=== PATIENT | male | born 1935 | race Caucasian/White ===

== ENCOUNTER 2017-08-11 15:43 | Emergency (ER) | payer MEDICARE, MEDICAID ==
[2017-08-11 16:08] LABS: ADD MAN DIFF? NO
[2017-08-11 16:10] LABS: WHITE BLOOD COUNT 8.3 10^3/ul (4.8-10.8)
[2017-08-11 16:10] LABS: BASOPHILS % 0.5 % (0.0-2.0); EOSINOPHILS # 0.2 10^3/ul (0.0-0.5); EOSINOPHILS % 2.9 % (0.0-7.0); HEMATOCRIT 39.7 % (42.0-52.0); HEMOGLOBIN 13.7 g/dl (14.0-18.0); LYMPHOCYTES # 2.8 10^3/ul (0.8-2.9); LYMPHOCYTES % 33.7 % (15.0-51.0); MEAN CORPUSCULAR HEMOGLOBIN 33.4 pg (29.0-33.0); MEAN CORPUSCULAR HGB CONC 34.5 g/dl (32.0-37.0); MEAN CORPUSCULAR VOLUME 96.8 fl (82.0-101.0); MEAN PLATELET VOLUME 9.5 fl (7.4-10.4); MONOCYTE # 0.6 10^3/ul (0.3-0.9); MONOCYTES % 7.4 % (0.0-11.0); NEUTROPHIL # 4.6 10^3/ul (1.6-7.5); NEUTROPHILS % 55.4 % (39.0-77.0); PLATELET COUNT 281 10^3/UL (140-415); RED CELL DISTRIBUTION WIDTH 14.4 % (11.5-14.5)
[2017-08-11] MEDS: SOD CHLORIDE 0.9% 1,000 ML IV (16:13)
[2017-08-11 16:36] LABS: ANION GAP 16 (8-16); BLOOD UREA NITROGEN 20 mg/dl (7-20); CALCIUM 8.8 mg/dl (8.4-10.2); CARBON DIOXIDE 24 mmol/L (21-31); CHLORIDE 107 mmol/L (97-110); CREATININE 1.56 mg/dl (0.61-1.24); GLUCOSE 107 mg/dl (70-220); SALICYLATE 1.4 mg/dl (5.0-30.0); SODIUM 143 mmol/L (135-144)
[2017-08-11 16:38] LABS: ACETAMINOPHEN < 10.0 ug/ml (10.0-30.0); ETHANOL < 10.0 mg/dl
[2017-08-11 16:53] LABS: TROPONIN-I < 0.012 ng/ml (0.00-0.12)
[2017-08-11 18:34] LABS: ADD UMIC YES; UR ASCORBIC ACID NEGATIVE (NEGATIVE); UR BILIRUBIN (Dip) NEGATIVE (NEGATIVE); UR BLOOD (Dip) NEGATIVE (NEGATIVE); UR CLARITY SLIGHTLY CLOUDY (CLEAR); UR COLOR YELLOW (YELLOW); UR GLUCOSE (Dip) NEGATIVE (NEGATIVE); UR KETONES (Dip) NEGATIVE (NEGATIVE); UR LEUKOCYTE ESTERASE (Dip) NEGATIVE Leu/ul (NEGATIVE); UR MUCUS FEW /HPF (NONE SEEN); UR NITRITE (Dip) NEGATIVE (NEGATIVE); UR RBC 1 /HPF (0-5); UR SPECIFIC GRAVITY (Dip) 1.017 (1.003-1.030); UR TOTAL PROTEIN (Dip) 1+ mg/dl (NEGATIVE); UR UROBILINOGEN (Dip) 1+ mg/dL (NEGATIVE); UR WBC 3 /HPF (0-5)
[2017-08-11 18:56] LABS: AMPHETAMINE/METHAMPHETAMINE Negative (NEGATIVE); BARBITURATES Negative (NEGATIVE); BENZODIAZEPINES Negative (NEGATIVE); CANNABINOIDS Negative (NEGATIVE); COCAINE Negative (NEGATIVE); OPIATES Negative (NEGATIVE)
== END 2017-08-11 19:30 | disposition home or self-care (01) ==
LOC: E/R 15:43
DX: R55 Syncope and collapse (principal); N18.9 Chronic kidney disease, unspecified; F17.210 Nicotine dependence, cigarettes, uncomplicated; Z79.82 Long term (current) use of aspirin
CPT/HCPCS: 36415; 70450; 71045; 80048; 80306; 80307; 81001; 82962; 84484; 85025; 99285-25

== ENCOUNTER 2017-08-12 06:45 | Inpatient (IN) | payer MEDICARE, MEDICAID ==
[2017-08-12 11:41] LABS: ADD MAN DIFF? NO
[2017-08-12 11:50] LABS: BASOPHILS % 0.2 % (0.0-2.0); EOSINOPHILS % 0.1 % (0.0-7.0); HEMATOCRIT 40.6 % (42.0-52.0); HEMOGLOBIN 13.9 g/dl (14.0-18.0); LYMPHOCYTES # 1.9 10^3/ul (0.8-2.9); LYMPHOCYTES % 14.5 % (15.0-51.0); MEAN CORPUSCULAR HEMOGLOBIN 33.4 pg (29.0-33.0); MEAN CORPUSCULAR HGB CONC 34.2 g/dl (32.0-37.0); MEAN CORPUSCULAR VOLUME 97.6 fl (82.0-101.0); MEAN PLATELET VOLUME 9.5 fl (7.4-10.4); MONOCYTE # 0.7 10^3/ul (0.3-0.9); MONOCYTES % 5.8 % (0.0-11.0); NEUTROPHIL # 10.1 10^3/ul (1.6-7.5); NEUTROPHILS % 78.9 % (39.0-77.0); PLATELET COUNT 274 10^3/UL (140-415); RED BLOOD COUNT 4.16 10^6/ul (4.70-6.10); RED CELL DISTRIBUTION WIDTH 14.5 % (11.5-14.5)
[2017-08-12 11:50] LABS: WHITE BLOOD COUNT 12.8 10^3/ul (4.8-10.8)
[2017-08-12 12:06] LABS: ANION GAP 17 (8-16); BLOOD UREA NITROGEN 24 mg/dl (7-20); CALCIUM 9.2 mg/dl (8.4-10.2); CARBON DIOXIDE 25 mmol/L (21-31); CHLORIDE 106 mmol/L (97-110); CREATININE 1.54 mg/dl (0.61-1.24); GLUCOSE 101 mg/dl (70-220); POTASSIUM 4.2 mmol/L (3.5-5.1); SODIUM 144 mmol/L (135-144)
[2017-08-12 12:08] LABS: ETHANOL < 10.0 mg/dl
[2017-08-12] MEDS ORDERED: ONDANSETRON 4 MG INJ IV ×2 (13:00→16:30)
[2017-08-12] MEDS ORDERED: ACETAMINOPHEN 325 MG TAB PO ×2 (13:00→16:30)
[2017-08-12] MEDS: SOD CHLORIDE 0.9% 1,000 ML IV (15:30)
[2017-08-12] MEDS: hydrALAzine 20 MG INJ IV (15:39)
[2017-08-12] MEDS ORDERED: morphine 2 MG INJ IV (16:30)
[2017-08-12] MEDS ORDERED: NACL 0.9% 3 ML SYG IV (16:30)
[2017-08-12] MEDS ORDERED: ZOLPIDEM 5 MG TAB PO (16:30)
[2017-08-12] MEDS ORDERED: VANCOMYCIN IV PER PHARMACY XX (16:30)
[2017-08-12] MEDS ORDERED: HYDROCODONE/APAP (5/325) TAB PO (16:30)
[2017-08-12] MEDS: AMLODIPINE 5 MG TAB PO (17:41)
[2017-08-12] MEDS: SOD CHLORIDE 0.45% 1,000 ML IV (17:42)
[2017-08-12] MEDS: VANCOMYCIN 1.5 GM in SOD CHLORIDE 0.9% 250 ML IVPB (17:42)
[2017-08-12 19:33] LABS: ADD UMIC YES; UR ASCORBIC ACID NEGATIVE (NEGATIVE); UR BILIRUBIN (Dip) NEGATIVE (NEGATIVE); UR BLOOD (Dip) 1+ mg/dL (NEGATIVE); UR CLARITY CLEAR (CLEAR); UR COLOR YELLOW (YELLOW); UR GLUCOSE (Dip) NEGATIVE (NEGATIVE); UR KETONES (Dip) TRACE mg/dL (NEGATIVE); UR LEUKOCYTE ESTERASE (Dip) NEGATIVE Leu/ul (NEGATIVE); UR NITRITE (Dip) NEGATIVE (NEGATIVE); UR RBC 1 /HPF (0-5); UR SPECIFIC GRAVITY (Dip) 1.015 (1.003-1.030); UR TOTAL PROTEIN (Dip) 1+ mg/dl (NEGATIVE); UR UROBILINOGEN (Dip) 1+ mg/dL (NEGATIVE); UR WBC 0 /HPF (0-5)
[2017-08-13] MEDS: SOD CHLORIDE 0.45% 1,000 ML IV ×3 (02:30→21:52)
[2017-08-13] MEDS: hydrALAzine 20 MG INJ IV (03:26)
[2017-08-13 05:39] LABS: ADD MAN DIFF? NO
[2017-08-13 05:43] LABS: BASOPHILS % 0.3 % (0.0-2.0); EOSINOPHILS # 0.1 10^3/ul (0.0-0.5); EOSINOPHILS % 1.5 % (0.0-7.0); HEMATOCRIT 35.9 % (42.0-52.0); HEMOGLOBIN 12.2 g/dl (14.0-18.0); LYMPHOCYTES # 1.9 10^3/ul (0.8-2.9); MEAN CORPUSCULAR HEMOGLOBIN 32.7 pg (29.0-33.0); MEAN CORPUSCULAR VOLUME 96.2 fl (82.0-101.0); MEAN PLATELET VOLUME 10.2 fl (7.4-10.4); MONOCYTE # 0.7 10^3/ul (0.3-0.9); MONOCYTES % 7.7 % (0.0-11.0); NEUTROPHIL # 6.7 10^3/ul (1.6-7.5); NEUTROPHILS % 70.3 % (39.0-77.0); PLATELET COUNT 257 10^3/UL (140-415); RED BLOOD COUNT 3.73 10^6/ul (4.70-6.10); RED CELL DISTRIBUTION WIDTH 14.3 % (11.5-14.5)
[2017-08-13 05:43] LABS: WHITE BLOOD COUNT 9.5 10^3/ul (4.8-10.8)
[2017-08-13 06:17] LABS: ANION GAP 13 (8-16); BLOOD UREA NITROGEN 25 mg/dl (7-20); CALCIUM 8.5 mg/dl (8.4-10.2); CARBON DIOXIDE 25 mmol/L (21-31); CHLORIDE 107 mmol/L (97-110); CREATININE 1.35 mg/dl (0.61-1.24); GLUCOSE 110 mg/dl (70-220); MAGNESIUM 1.8 mg/dl (1.7-2.5); PHOSPHORUS 3.1 mg/dl (2.5-4.9); POTASSIUM 3.7 mmol/L (3.5-5.1); SODIUM 141 mmol/L (135-144)
[2017-08-13 07:08] LABS: FOLATE 17.4 ng/ml (2.8-20.0)
[2017-08-13] MEDS: ASPIRIN (EC) 325 MG TAB PO (08:31)
[2017-08-13] MEDS: AMLODIPINE 5 MG TAB PO (08:31)
[2017-08-13] MEDS: INFLUENZA VIRUS VACCINE 0.5 ML SYG IM* (16:28)
[2017-08-13] MEDS: VANCOMYCIN 1 GM 250 ML IVPB (16:39)
[2017-08-13] MEDS ORDERED: VANCOMYCIN 750 MG in DEXTROSE 5% 150 ML IVPB (17:00)
[2017-08-14] MEDS: hydrALAzine 20 MG INJ IV (01:55)
[2017-08-14 05:28] LABS: ADD MAN DIFF? NO
[2017-08-14 05:33] LABS: BASOPHILS % 0.3 % (0.0-2.0); EOSINOPHILS # 0.3 10^3/ul (0.0-0.5); EOSINOPHILS % 3.1 % (0.0-7.0); HEMATOCRIT 34.1 % (42.0-52.0); LYMPHOCYTES # 1.7 10^3/ul (0.8-2.9); LYMPHOCYTES % 17.5 % (15.0-51.0); MEAN CORPUSCULAR HEMOGLOBIN 33.2 pg (29.0-33.0); MEAN CORPUSCULAR HGB CONC 35.2 g/dl (32.0-37.0); MEAN CORPUSCULAR VOLUME 94.5 fl (82.0-101.0); MEAN PLATELET VOLUME 9.8 fl (7.4-10.4); MONOCYTE # 0.9 10^3/ul (0.3-0.9); MONOCYTES % 8.8 % (0.0-11.0); NEUTROPHIL # 6.8 10^3/ul (1.6-7.5); NEUTROPHILS % 70.1 % (39.0-77.0); PLATELET COUNT 244 10^3/UL (140-415); RED BLOOD COUNT 3.61 10^6/ul (4.70-6.10); RED CELL DISTRIBUTION WIDTH 14.2 % (11.5-14.5)
[2017-08-14 05:33] LABS: WHITE BLOOD COUNT 9.7 10^3/ul (4.8-10.8)
[2017-08-14 05:58] LABS: ANION GAP 14 (8-16); BLOOD UREA NITROGEN 20 mg/dl (7-20); CALCIUM 8.6 mg/dl (8.4-10.2); CARBON DIOXIDE 25 mmol/L (21-31); CHLORIDE 102 mmol/L (97-110); GLUCOSE 91 mg/dl (70-220); POTASSIUM 3.5 mmol/L (3.5-5.1); SODIUM 137 mmol/L (135-144)
[2017-08-14] MEDS: ASPIRIN (EC) 325 MG TAB PO (09:27)
[2017-08-14] MEDS: SOD CHLORIDE 0.45% 1,000 ML IV (09:28)
[2017-08-14] MEDS: AMLODIPINE 10 MG TAB PO (09:28)
[2017-08-14] MEDS: LISINOPRIL 10 MG TAB PO (13:59)
[2017-08-14] MEDS: DOCUSATE SODIUM 100 MG CAP PO (14:24)
[2017-08-15] MEDS: LISINOPRIL 10 MG TAB PO (08:10)
[2017-08-15] MEDS: ASPIRIN (EC) 325 MG TAB PO (08:10)
[2017-08-15] MEDS: AMLODIPINE 10 MG TAB PO (08:10)
[2017-08-15] MEDS: DOCUSATE SODIUM 100 MG CAP PO (08:11)
[2017-08-16] MEDS: AMLODIPINE 10 MG TAB PO (08:00)
[2017-08-16] MEDS: ASPIRIN (EC) 325 MG TAB PO (08:00)
[2017-08-16] MEDS: DOCUSATE SODIUM 100 MG CAP PO (20:09)
[2017-08-17] MEDS: ASPIRIN (EC) 325 MG TAB PO (08:52)
[2017-08-17] MEDS: AMLODIPINE 10 MG TAB PO (08:52)
[2017-08-18] MEDS: ASPIRIN (EC) 325 MG TAB PO (09:52)
[2017-08-18] MEDS: DOCUSATE SODIUM 100 MG CAP PO (16:12)
== END 2017-08-18 16:24 | DRG 872 ==
LOC: E/R 06:45 → PP2 12:36
DX: A41.9 Sepsis, unspecified organism (principal); N17.9 Acute kidney failure, unspecified; R64 Cachexia; L03.818 Cellulitis of other sites; F03.91 Unspecified dementia, unspecified severity, with behavioral disturbance; R62.7 Adult failure to thrive; Z68.26 Body mass index [BMI] 26.0-26.9, adult; G30.9 Alzheimer's disease, unspecified; Z91.83 Wandering in diseases classified elsewhere; F17.210 Nicotine dependence, cigarettes, uncomplicated; E86.0 Dehydration; Z86.73 Personal history of transient ischemic attack (TIA), and cerebral infarction without residual deficits; Z91.81 History of falling; G31.84 Mild cognitive impairment of uncertain or unknown etiology
CPT/HCPCS: 36415; 80048; 80306; 81001; 82607; 82746; 83735; 84100; 85025; 90686; 97110; 97116; 97161; 97530; 99285-25; G0378

== ENCOUNTER 2017-11-06 15:53 | Observation (INO) | payer MEDICARE, OTHER, MEDICAID ==
[2017-11-06 16:33] LABS: ADD MAN DIFF? NO
[2017-11-06 16:34] LABS: WHITE BLOOD COUNT 7.1 10^3/ul (4.8-10.8)
[2017-11-06 16:34] LABS: BASOPHILS % 0.4 % (0.0-2.0); EOSINOPHILS # 0.3 10^3/ul (0.0-0.5); EOSINOPHILS % 3.7 % (0.0-7.0); HEMATOCRIT 42.6 % (42.0-52.0); HEMOGLOBIN 14.2 g/dl (14.0-18.0); LYMPHOCYTES # 3.5 10^3/ul (0.8-2.9); LYMPHOCYTES % 49.4 % (15.0-51.0); MEAN CORPUSCULAR HEMOGLOBIN 32.8 pg (29.0-33.0); MEAN CORPUSCULAR HGB CONC 33.3 g/dl (32.0-37.0); MEAN CORPUSCULAR VOLUME 98.4 fl (82.0-101.0); MEAN PLATELET VOLUME 9.9 fl (7.4-10.4); MONOCYTE # 0.4 10^3/ul (0.3-0.9); MONOCYTES % 5.5 % (0.0-11.0); NEUTROPHIL # 2.9 10^3/ul (1.6-7.5); NEUTROPHILS % 40.9 % (39.0-77.0); PLATELET COUNT 220 10^3/UL (140-415); RED BLOOD COUNT 4.33 10^6/ul (4.70-6.10); RED CELL DISTRIBUTION WIDTH 13.6 % (11.5-14.5)
[2017-11-06 16:46] LABS: ALANINE AMINOTRANSFERASE 22 IU/L (13-69); ALBUMIN/GLOBULIN RATIO 1.33; ALKALINE PHOSPHATASE 93 IU/L (42-121); ANION GAP 17 (8-16); ASPARTATE AMINO TRANSFERASE 22 IU/L (15-46); BILIRUBIN,INDIRECT 0.7 mg/dl (0-1.1); BILIRUBIN,TOTAL 0.7 mg/dl (0.2-1.3); BLOOD UREA NITROGEN 21 mg/dl (7-20); CARBON DIOXIDE 27 mmol/L (21-31); CHLORIDE 100 mmol/L (97-110); GLUCOSE 90 mg/dl (70-220); SODIUM 140 mmol/L (135-144)
[2017-11-06] MEDS: SOD CHLORIDE 0.9% 500 ML IV (16:46)
[2017-11-06 17:05] LABS: TROPONIN-I < 0.012 ng/ml (0.000-0.120)
[2017-11-06] MEDS ORDERED: ONDANSETRON 4 MG INJ IV ×2 (18:30→19:00)
[2017-11-06] MEDS ORDERED: NA PHOSPHATE/BIPHOS 133 ML ENEMA PR (18:30)
[2017-11-06] MEDS ORDERED: MAGNESIUM HYDROXIDE 30ML CUP PO (18:30)
[2017-11-06] MEDS ORDERED: NACL 0.9% 3 ML SYG IV (18:30)
[2017-11-06] MEDS ORDERED: ALBUTEROL/IPRATROPIUM (NEB) 3 ML AMP HHN (18:30)
[2017-11-06] MEDS ORDERED: DOCUSATE SODIUM 100 MG CAP PO (18:30)
[2017-11-06] MEDS ORDERED: ACETAMINOPHEN 325 MG TAB PO ×2 (18:30→19:00)
[2017-11-06] MEDS ORDERED: HYDROCODONE/APAP (5/325) TAB PO (18:30)
[2017-11-06] MEDS ORDERED: morphine 2 MG INJ IV (18:30)
[2017-11-06] MEDS ORDERED: NITROGLYCERIN (SL) 0.4 MG TAB SL (18:30)
[2017-11-06 18:57] LABS: ADD UMIC NO; UR ASCORBIC ACID NEGATIVE (NEGATIVE); UR BILIRUBIN (Dip) NEGATIVE (NEGATIVE); UR BLOOD (Dip) NEGATIVE (NEGATIVE); UR CLARITY CLEAR (CLEAR); UR COLOR YELLOW (YELLOW); UR GLUCOSE (Dip) NEGATIVE (NEGATIVE); UR KETONES (Dip) 1+ mg/dL (NEGATIVE); UR LEUKOCYTE ESTERASE (Dip) NEGATIVE Leu/ul (NEGATIVE); UR NITRITE (Dip) NEGATIVE (NEGATIVE); UR SPECIFIC GRAVITY (Dip) 1.009 (1.003-1.030); UR TOTAL PROTEIN (Dip) NEGATIVE (NEGATIVE); UR UROBILINOGEN (Dip) NEGATIVE (NEGATIVE)
[2017-11-06 19:09] LABS: FREE T4 (FREE THYROXINE) 1.13 ng/dl (0.85-1.93)
[2017-11-06] MEDS: hydrALAzine 20 MG INJ IV ×2 (19:18→20:34)
[2017-11-06] MEDS: SOD CHLORIDE 0.45% 1,000 ML IV (19:18)
[2017-11-06] MEDS ORDERED: hydrALAzine 20 MG INJ (20:32)
[2017-11-06] MEDS: HEPARIN 5,000 UNIT/0.5 ML VIAL SC (21:00)
[2017-11-07 05:52] LABS: ADD MAN DIFF? NO
[2017-11-07 05:55] LABS: BASOPHILS % 0.5 % (0.0-2.0); EOSINOPHILS # 0.2 10^3/ul (0.0-0.5); EOSINOPHILS % 3.3 % (0.0-7.0); HEMATOCRIT 40.5 % (42.0-52.0); HEMOGLOBIN 13.8 g/dl (14.0-18.0); LYMPHOCYTES # 2.1 10^3/ul (0.8-2.9); MEAN CORPUSCULAR HEMOGLOBIN 32.8 pg (29.0-33.0); MEAN CORPUSCULAR HGB CONC 34.1 g/dl (32.0-37.0); MEAN CORPUSCULAR VOLUME 96.2 fl (82.0-101.0); MEAN PLATELET VOLUME 10.1 fl (7.4-10.4); MONOCYTE # 0.4 10^3/ul (0.3-0.9); MONOCYTES % 6.6 % (0.0-11.0); NEUTROPHIL # 3.6 10^3/ul (1.6-7.5); NEUTROPHILS % 56.4 % (39.0-77.0); PLATELET COUNT 217 10^3/UL (140-415); RED BLOOD COUNT 4.21 10^6/ul (4.70-6.10); RED CELL DISTRIBUTION WIDTH 13.6 % (11.5-14.5)
[2017-11-07 05:55] LABS: WHITE BLOOD COUNT 6.4 10^3/ul (4.8-10.8)
[2017-11-07] MEDS: PANTOPRAZOLE (EC) 40 MG TAB PO (06:00)
[2017-11-07 06:07] LABS: HEMOGLOBIN A1C 5.6 % (0-5.9)
[2017-11-07 06:27] LABS: ANION GAP 15 (8-16); BLOOD UREA NITROGEN 17 mg/dl (7-20); CALCIUM 8.5 mg/dl (8.4-10.2); CARBON DIOXIDE 26 mmol/L (21-31); CHLORIDE 100 mmol/L (97-110); CREATININE 1.18 mg/dl (0.61-1.24); GLUCOSE 76 mg/dl (70-220); MAGNESIUM 1.8 mg/dl (1.7-2.5); PHOSPHORUS 3.6 mg/dl (2.5-4.9); POTASSIUM 3.5 mmol/L (3.5-5.1); SODIUM 137 mmol/L (135-144)
[2017-11-07] MEDS: SOD CHLORIDE 0.45% 1,000 ML IV ×2 (07:40→08:48)
[2017-11-07 08:30] LABS: CHOLESTEROL 181 mg/dl (100-200)
[2017-11-07 08:30] LABS: CHOL/HDL RATIO 3.6 RATIO; HDL CHOLESTEROL 50 mg/dl (31-75); LDL CHOLESTEROL,CALCULATED 115 mg/dl; TRIGLYCERIDES 80 mg/dl (0-149)
[2017-11-07] MEDS: NICOTINE (14 MG/24 HR) PATCH TRANSDERM ×2 (08:48→09:00)
[2017-11-07] MEDS: HEPARIN 5,000 UNIT/0.5 ML VIAL SC ×2 (08:49→21:07)
[2017-11-07] MEDS: POLYETHYLENE GLYCOL 17 GM PACKET PO (15:18)
[2017-11-08] MEDS: PANTOPRAZOLE (EC) 40 MG TAB PO (05:15)
[2017-11-08] MEDS: POLYETHYLENE GLYCOL 17 GM PACKET PO (09:00)
[2017-11-08] MEDS: NICOTINE (14 MG/24 HR) PATCH TRANSDERM (09:00)
[2017-11-08] MEDS: HEPARIN 5,000 UNIT/0.5 ML VIAL SC (09:00)
== END 2017-11-08 15:50 | disposition home or self-care (01) ==
LOC: E/R 15:53 → PP2 18:45
DX: N17.9 Acute kidney failure, unspecified (principal); F03.90 Unspecified dementia, unspecified severity, without behavioral disturbance, psychotic disturbance, mood disturbance, and anxiety; I10 Essential (primary) hypertension; Z72.0 Tobacco use; Z88.6 Allergy status to analgesic agent
CPT/HCPCS: 71045; 80048; 80053; 80061; 81003; 83036; 83735; 84100; 84439; 84443; 84484; 85025; 87081; 92610; 93005; 96361; 96374; 97116; 97161; 97165; 97530; 97535; 99285-25; G0378